=== PATIENT | male | born 2000 | race Caucasian/White ===

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

== ENCOUNTER 2020-05-05 14:44 | Emergency (ER) | payer BC ==
[2020-05-05] MEDS ORDERED: ALPRAZolam 0.5 MG TAB PO STA (15:17)
--- NOTE | 2020-05-05 15:17 | ED ---
Psych HPI - General Chief Complaint: Psychiatric Symptoms Stated Complaint: Mental Health Time Seen by Provider: 05/05/20 14:57 Source: patient Mode of arrival: ambulatory - History of Present Illness Initial Comments: Patient is a 20-year-old male presenting to emergency Department for a psychiatric ideation. Patient reports increased anxiety and depression over the last 6 months. Patient states she has been bearing for bodybuilding show and has been on a strict diet. Patient states also he was forced to come home from school due to the coronavirus. Patient states now he is not around his friends and is confined to being locked inside a house. Patient states she had been taking some online classes his been somewhat in the crossroads for deciding his future.. Patient states his sleeping patterns have been erratic as of lately. Patient states he is barely getting any sleep. States she has been taking [id number] herbal sleep aids along with melatonin with no improvement of symptoms. He denies any suicidal thoughts or ideations. Denies any homicidal thoughts or ideations. - Related Data Home Medications Medication Instructions Recorded Confirmed Asa Calm 1 tab PO DAILY 05/05/20 05/05/20 Multivitamins, Thera [Multivitamin 1 tab PO DAILY 05/05/20 05/05/20 (formulary)] Sterling-3 Fatty Acids/Fish Oil [Fish 1 cap PO DAILY 05/05/20 05/05/20 Oil 1,000 mg Softgel] Valerian Root 100 mg PO DAILY 05/05/20 05/05/20 Allergies Allergy/AdvReac Type Severity Reaction Status Date / Time No Known Allergies Allergy Verified 05/05/20 14:55 Review of Systems ROS Statement: Those systems with pertinent positive or pertinent negative responses have been documented in the HPI. ROS Other: All systems not noted in ROS Statement are negative. Past Medical History Past Medical History: No Reported History History of Any Multi-Drug Resistant Organisms: None Reported Past Surgical History: No Surgical Hx Reported Past Psychological History: No Psychological Hx Reported Smoking Status: Never smoker Past Alcohol Use History: None Reported Past Drug Use History: None Reported General Exam Limitations: no limitations General appearance: alert, in no apparent distress, anxious Head exam: Present: atraumatic, normocephalic, normal inspection Eye exam: Present: normal appearance, PERRL, EOMI Pupils: Present: normal accommodation ENT exam: Present: normal exam, normal oropharynx, mucous membranes moist, TM's normal bilaterally, normal external ear exam Neck exam: Present: normal inspection, full ROM. Absent: tenderness Respiratory exam: Present: normal lung sounds bilaterally. Absent: respiratory distress, wheezes Cardiovascular Exam: Present: regular rate, normal rhythm, normal heart sounds Extremities exam: Present: normal inspection, full ROM. Absent: tenderness Back exam: Present: normal inspection, full ROM. Absent: tenderness Neurological exam: Present: alert, oriented X3, CN II-XII intact, normal gait Psychiatric exam: Present: normal affect, anxious Skin exam: Present: warm, dry, intact, normal color Course Vital Signs 05/05/20 05/05/20 14:51 19:22 Temperature 99 F 98.0 F Pulse Rate 107 H 99 Respiratory 22 18 Rate Blood Pressure 167/100 155/80 O2 Sat by Pulse 96 98 Oximetry Medical Decision Making - Medical Decision Making Patient a 20-year-old male presenting to the emergency department for psychia tric evaluation. Initial evaluation patient is inches. No medical complaints. EPS evaluated the patient. Patient was given anxiolytics and emergency department to help with the acute exact. Patient will be discharged and will follow-up outpatient psychiatric services. Safety plan discussed. No homicidal, suicidal thoughts or ideations. Mother patient aware and understanding of the information. Return parameters were thoroughly discussed and they are understanding and agreeable. Case discussed with physician. - Lab Data Lab Results 05/05/20 05/05/20 Range/Units 17:02 17:08 POC Glucose (mg/dL) 139 H (75-99) mg/dL POC Glu Department Chairperson ID Yecenia Jones Urine Color Yellow Urine Appearance Clear (Clear) Urine pH 6.0 (5.0-8.0) Ur Specific [place] 1.019 (1.001-1.035) Urine Protein Negative (Negative) Urine Glucose (UA) Negative (Negative) Urine Ketones Negative (Negative) Urine Blood Negative (Negative) Urine Nitrite Negative (Negative) Urine Bilirubin Negative (Negative) Urine Urobilinogen <2.0 (<2.0) mg/dL Ur Leukocyte Esterase Negative (Negative) Urine Opiates Screen Not Detected (NotDetected) Ur Oxycodone Screen Not Detected (NotDetected) Urine Methadone Screen Not Detected (NotDetected) Ur Propoxyphene Screen Not Detected (NotDetected) Ur Barbiturates Screen Not Detected (NotDetected) U Tricyclic Antidepress Not Detected (NotDetected) Ur Phencyclidine Scrn Not Detected (NotDetected) Ur Amphetamines Screen Not Detected (NotDetected) U Methamphetamines Scrn Not Detected (NotDetected) U Benzodiazepines Scrn Not Detected (NotDetected) Urine Cocaine Screen Not Detected (NotDetected) U Marijuana (THC) Screen Not Detected (NotDetected) Disposition Clinical Impression: Acute anxiety Disposition: HOME SELF-CARE Condition: Stable Instructions (If sedation given, give patient instructions): Anxiety (ED) Additional Instructions: Follow up with outpatient psychiatric services. Return to emergency department if symptoms worsen. Is patient prescribed a controlled substance at d/c from ED?: No Referrals: Julio Riley MD [Primary Care Provider] - 1-2 days Time of Disposition: 18:46
[2020-05-05 17:10] LABS: Glucose,Whole Blood 139 mg/dL (75-99)
[2020-05-05] MEDS ORDERED: ALPRAZolam 1 MG TAB PO STA (17:13)
[2020-05-05 17:14] LABS: Appearance,Urine Clear (Clear); Bilirubin,Urine Negative (Negative); Blood,Urine Negative (Negative); Color,Urine Yellow; Glucose,Urine (UA) Negative (Negative); Ketones,Urine Negative (Negative); Leukocyte Esterase,Urine Negative (Negative); Nitrite,Urine Negative (Negative); Protein,Urine Negative (Negative); Specific Gravity,Urine 1.019 (1.001-1.035); Urobilinogen,Urine <2.0 mg/dL (<2.0)
[2020-05-05 17:21] LABS: Amphetamine Screen,Urine Not Detected (NotDetected); Barbiturate Screen,Urine Not Detected (NotDetected); Benzodiazepines Screen,Urine Not Detected (NotDetected); Cocaine Screen,Urine Not Detected (NotDetected); Methadone Screen, Urine Not Detected (NotDetected); Opiate Screen,Urine Not Detected (NotDetected); Oxycodone Screen, Urine Not Detected (NotDetected); Phencyclidine Screen,Urine Not Detected (NotDetected); Tricyclic Antidepressant,Urine Not Detected (NotDetected); Urn Cannabinoid Scrn Not Detected (NotDetected)
[2020-05-05] MEDS: ALPRAZolam 1 MG TAB PO STA ×2 (18:52→19:14)
[2020-05-05 19:22] VITALS: BP 155/80; PULSE 99; RESP 18; TEMP 98
== END 2020-05-05 19:22 | disposition home or self-care (01) ==
LOC: EC 14:44
DX: F41.9 Anxiety disorder, unspecified (principal)
CPT/HCPCS: 36415; 80306; 81003; 82075; 99284

== ENCOUNTER → 2020-11-24 | Outpatient (CLI) | payer BC ==
--- NOTE | 2020-11-24 10:35 | USB ---
Reason for exam: clinical finding. Indicated problem(s): palpable abnormality and pain in the left breast. Physical Findings: Nurse Summary: 0.5cm lump palpated left breast 10-11 o'clock around nipple (nurse TM). US Breast LT Technologist: Cassandra Haider Left limited breast ultrasound including focal area of concern, retroareolar and axilla demonstrates ducts at the posterior nipple. These results were verbally communicated with the patient and result sheet given to the patient on 11/24/20. ASSESSMENT: Probably benign, BI-RAD 3 RECOMMENDATION: Ultrasound of the left breast in 6 months. Manage patient on a clinical basis.
== END | disposition home or self-care (01) ==
LOC: RADUSWWP 08:44
PROVIDERS: ATTEND Nurse Practitioner Adult Health
DX: N63.20 Unspecified lump in the left breast, unspecified quadrant (principal)